=== PATIENT | male | born 1980 | race Caucasian/White ===

== ENCOUNTER → 2017-12-11 | Outpatient (CLI) | payer OTHER ==
[~2017-12-11] MED LIST: ALBUAER INH; ALBUAER19 INH; AMOX1TAB43 PO; OMEP20CA59 PO; PEDICHW34 PO
== END | disposition home or self-care (01) ==
LOC: C.PATHSPEC 16:40
PROVIDERS: ATTEND Dermatology
DX: D22.4 Melanocytic nevi of scalp and neck (principal)

== ENCOUNTER → 2018-02-22 | Outpatient (CLI) | payer OTHER | END | disposition home or self-care (01) | LOC: C.PATHSPEC 18:09 | PROVIDERS: ATTEND Plastic Surgery | DX: D22.5 Melanocytic nevi of trunk (principal) ==